=== PATIENT | female | born 1950 | race Caucasian/White ===

== ENCOUNTER 2020-03-23 10:53 | Outpatient (CLI) | payer MEDICARE, OTHER, SELFPAY ==
--- NOTE | 2020-03-23 | XR_ITS ---
WS: [id number] CHEST 2 VIEWS HISTORY: CHEST DISCOMFORT 1 MONTH COMPARISON: None available. Lungs: Well aerated lungs with a few granulomata. No pneumonia. Normal vasculature. No pleural effusi on. Cardiac size: Normal. Mediastinum/Aorta: Mild atherosclerosis aorta. Bones: Normal. XR/XR chest 2V* [id number] IMPRESSION: Prior granulomatous disease. No acute cardiopulmonary disease.
[2020-03-23 12:28] LABS: D Dimer 0.42 ug/mIFEU (0-0.59)
== END 2020-03-23 10:54 | disposition home or self-care (01) ==
LOC: RADOUTREAD 11:18
PROVIDERS: PCP Family Medicine; Visit Provider Family Medicine
DX: R07.89 Other chest pain (principal)
CPT/HCPCS: 85378

== ENCOUNTER 2021-03-19 03:16 | Emergency (ER) | payer MEDICARE, OTHER, SELFPAY ==
--- NOTE | 2021-03-19 03:18 | ECG_ITS ---
[facility] Test Date: 2021-03-19 Pat Name: Stacy Leong Department: Room: Gender: Female Gas Desulfurizer: : 1950 Requested By: Nadia Sage Order Number: [id number] Connor MD: Alexandru Mendoza M.D. Measurements Intervals [place] Rate: 160 P: VT: QRS: 71 QRSD: 73 T: 65 QT: 271 QTc: 443 Interpretive Statements ATRIAL FIBRILLATION WITH RAPID VENTRICULAR RESPONSE ST DEPRESSION, CONSIDER SUBENDOCARDIAL INJURY [0.1+ mV ST DEPRESSION] No previous ECG available for comparison Electronically Signed On 03-19-2021 17:11:47 GLOVE PARTS CUTTER by Alexandru Mendoza M.D. [email or web address] river [email or web address] Technologiesacmc [email or web address]/store/[id number] f
[2021-03-19 03:19] VITALS: BP 122/94; PULSE 164; RESP 18; TEMP 36.8; O2SAT 98; BMI 21.1
--- NOTE | 2021-03-19 03:26 | XRR_ITS ---
PROCEDURE INFORMATION: Exam: XR Chest Exam date and time: 03/19/2021 3:26 AM Age: 70 years old Clinical indication: Pain; Chest pressure; Additional info: Cp TECHNIQUE: Imaging protocol: XR of the chest. Views: 1 view. Total images: 1 COMPARISON: No relevant prior studies available. FINDINGS: Lungs: Unremarkable. No consolidation. Pleural spaces: Unremarkable. No pleural effusion. No pneumothorax. Heart/Mediastinum: Unremarkable. No cardiomegaly. Vasculature: Atherosclerosis is evident. Bones/joints: Unremarkable. XR/XR chest 1V portable [id number] IMPRESSION: No acute findings.
--- NOTE | 2021-03-19 03:26 | ECG_ITS ---
[facility] Test Date: 2021-03-19 Pat Name: Stacy Leong Department: Room: Gender: Female Assessment Director: : 1950 Requested By: Nadia Sage Order Number: [id number] Connor MD: Alexandru Mendoza M.D. Measurements Intervals [place] Rate: 160 P: ME: QRS: 71 QRSD: 73 T: 65 QT: 271 QTc: 443 Interpretive Statements ATRIAL FIBRILLATION WITH RAPID VENTRICULAR RESPONSE ST DEPRESSION, CONSIDER SUBENDOCARDIAL INJURY [0.1+ mV ST DEPRESSION] No previous ECG available for comparison Electronically Signed On 03-19-2021 17:11:58 INLAYER by Alexandru Mendoza M.D. [email or web address] [facility] [id number] f
--- NOTE | 2021-03-19 03:28 | W.ED.ARRPALP ---
HPI - Arrhythmia/Palpitations General: Chief Complaint: Arrhythmia/Palpitations Stated Complaint: Arithmia Time Seen by Provider: 03/19/21 03:18 Source: patient Mode of arrival: ambulatory Limitations: no limitations History of Present Illness: 60-year-old female who states that she had woke up little over an hour ago with palpitations. She states that she could feel her heart was racing and her heart rate was in the 160s's in the 160s here with A. fib with RVR. She has no history of documented A. fib she states that she has had some tachycardia in the past but typically it resolves after carotid massage states that tonight has not resolved. She states she wore a Holter monitor few months ago but never showed any arrhythmias. She has some slight chest pain with the palpitations. Denies any shortness of breath. No fever. Associated symptoms: Deny nausea or vomiting Review of Systems Const: Denies: fever(s), chills, body aches or change in appetite Eyes: Denies: blurry vision or eye discomfort ENMT: Denies: throat pain or dental pain Card: Reports: palpitations Resp: Denies: dyspnea GI: Denies: abdominal pain, nausea, vomiting or diarrhea : Denies: dysuria Musc: Denies: neck pain or back pain Skin/Breast: Denies: rash Neuro: Denies: headache(s) Psych: Denies: depression Emerson/Lymph: Denies: easy bruising All/Imm: Denies: urticaria PFSH ED PFSH: Medical History (Updated 03/19/21 @ 04:05 by Nadia Sage MD) No pertinent past medical history Social History (Updated 03/19/21 @ 03:31 by Nadia Sage MD) Substance/Drug Use: never Physical Exam Const: COMMON NORMALS: no acute distress and patient oriented x3 HENMT: COMMON NORMALS: normocephalic and atraumatic HEAD & SCALP: normocephalic and atraumatic Eye: COMMON NORMALS: Equal, round and reactive pupils present and EOMs intact bilaterally PUPIL: Yes Equal, round and reactive pupils present Neck/C-Spine: COMMON NORMALS: full ROM and supple Chest: COMMONS NORMALS: normal inspection of the chest and normal palpation of entire chest wall Resp: COMMON NORMALS: normal respiratory effort, No retractions, No use of accessory muscles and clear to auscultation bilaterally AUSCULTATION: clear to auscultation bilaterally Cardio: COMMON NORMALS: No murmurs present (Cardio) RATE: tachycardic RHYTHM: abnormal rhythm irregularly irregular GI: COMMON NORMALS: Normal to inspection, nondistended, normoactive bowel sounds present, Soft to palpation, non-tender and no masses PALPATION: Yes Soft to palpation Extremity: COMMON NORMALS: normal to inspection and full ROM Neuro: COMMON NORMALS: patient oriented x3, moves all extremities and no focal motor deficits Psych: COMMON NORMALS: mental status grossly normal, Normal thought process present and cooperative THOUGHT PROCESS: Normal thought process present Skin: COMMON NORMALS: no rashes or lesions noted and no wounds GENERAL SKIN EXAM: no rashes or lesions noted Course Vital Signs: Vital signs: Vital Signs Temperature 98.3 F 03/19/21 03:19 Pulse Rate 164 H 03/19/21 03:19 Respiratory Rate 18 03/19/21 03:19 Blood Pressure 122/94 03/19/21 03:19 Pulse Oximetry 98 03/19/21 03:19 MDM - Arrhythmia/Palpitations Medical Decision Making Patient presents here with Lashon mustafa with RVR. Her heart rates much improved after Cardizem and is in the 80s. Her blood pressure has been stable as well. I did speak to cardiology Dr. Fang will start patient on metoprolol along with Eliquis and get her follow-up with him outpatient she is to return if worsening she understands agrees to plan. Lab Data : 03/19/21 03:25 03/19/21 03:25 Laboratory Results WBC 4.2 10^3/uL (4.0-10.0) 03/19/21 03:25 RBC 4.90 10^6/uL (4.1-5.3) 03/19/21 03:25 Hgb 14.9 g/dL (11.5-15.3) 03/19/21 03:25 Hct 45.0 % (37.0-47.0) 03/19/21 03:25 MCV 91.8 fl (81-99) 03/19/21 03:25 MCH 30.4 pg (28.0-34.0) 03/19/21 03:25 MCHC 33.1 g/dL (30.0-36.0) 03/19/21 03:25 RDW 11.9 % (12.1-15.1) L 03/19/21 03:25 Plt Count 380 10^3/cmm (130-400) 03/19/21 03:25 MPV 9.8 fL (7.4-10.4) 03/19/21 03:25 Neut % (Auto) 41.8 % 03/19/21 03:25 Lymph % (Auto) 41.8 % 03/19/21 03:25 Dale % (Auto) 11.9 % 03/19/21 03:25 Eos % (Auto) 3.3 % 03/19/21 03:25 Baso % (Auto) 1.0 % 03/19/21 03:25 Neut # (Auto) 1.75 10^3/uL (1.8-7.7) L 03/19/21 03:25 Lymph # (Auto) 1.8 10^3/uL (0.8-4.8) 03/19/21 03:25 Dale # (Auto) 0.5 10^3/uL (0.2-0.9) 03/19/21 03:25 Eos # (Auto) 0.1 10^3/uL (0.0-0.8) 03/19/21 03:25 Baso # (Auto) 0.0 10^3/uL (0.0-0.1) 03/19/21 03:25 Nucleated RBC % (auto) 0 % 03/19/21 03:25 Nucleated RBCs # 0.0 /100WBC 03/19/21 03:25 Sodium 140 mmol/L (136-145) 03/19/21 03:25 Potassium 4.0 mmol/L (3.5-5.1) 03/19/21 03:25 Chloride 107 mmol/L (98-107) 03/19/21 03:25 Carbon Dioxide 21 mmol/L (22-29) L 03/19/21 03:25 Anion Gap 16.0 (5-19) 03/19/21 03:25 BUN 11 mg/dL (8-23) 03/19/21 03:25 Creatinine 0.7 mg/dL (0.5-0.9) 03/19/21 03:25 GFR Calculation 83.2 mL/min (90-130) L 03/19/21 03:25 Glucose 155 mg/dL (65-115) H 03/19/21 03:25 Calculated Osmolality 293 mOsm/kg (285-295) 03/19/21 03:25 Calcium 9.6 mg/dL (8.5-10.5) 03/19/21 03:25 Total Bilirubin 0.4 mg/dL (0.15-1.2) 03/19/21 03:25 AST 17 U/L (0-32) 03/19/21 03:25 ALT 17 U/L (0-33) 03/19/21 03:25 Alkaline Phosphatase 84 IU/L (35-105) 03/19/21 03:25 Troponin T Baseline 8 ng/L (0-10) 03/19/21 03:25 Total Protein 6.7 g/dL (6.6-8.7) 03/19/21 03:25 Albumin 4.4 g/dL (3.5-5.2) 03/19/21 03:25 Globulin 2.3 g/dL (1.3-4.6) 03/19/21 03:25 EKG Data EKG 1: I personally reviewed and interpreted this EKG as follows: EKG interpretation date: 03/19/21 EKG interpretation time: 03:21 Interpretation: afib with rvr hr [address] or t wave abnormalities qrs 73 qtc 360 Discharge Plan Discharge Patient Disposition: Home Clinical Impression: Atrial fibrillation with RVR Prescriptions: New Lopressor 50 mg tablet 25 mg PO BID Qty: 60 0RF Eliquis 5 mg tablet 5 mg PO BID Qty: 60 0RF Discharge Orders: Discharge ED (Routine); Ordered 03/19/21 Ordered By: Nadia Sage Referrals: Alexandru Mendoza M.D [Physician] - 1-3 days Discharge Diet: Advance as tolerated Discharge Activity: Resume usual activity Patient Instructions: A-fib (Atrial Fibrillation) (ED) Coding Level of Care Code ED Junior Systems Engineer for Chg Fwd Exam Comprehensive
[2021-03-19] MEDS: sodium chloride 0.9% 1,000 ML 999 ML IV (03:37)
[2021-03-19 03:43] LABS: Eosinophils # 0.1 10^3/uL (0.0-0.8); Eosinophils % 3.3 %; Hemoglobin 14.9 g/dL (11.5-15.3); Lymphocytes # 1.8 10^3/uL (0.8-4.8); Lymphocytes % 41.8 %; Mean Corpuscular HGB Conc 33.1 g/dL (30.0-36.0); Mean Corpuscular Hemoglobin 30.4 pg (28.0-34.0); Mean Corpuscular Volume 91.8 fl (81-99); Mean Platelet Volume 9.8 fL (7.4-10.4); Monocytes # 0.5 10^3/uL (0.2-0.9); Monocytes % 11.9 %; Neutrophils # 1.75 10^3/uL (1.8-7.7); Neutrophils % 41.8 %; Nucleated Red Blood Cells % 0 %; Platelet Count 380 10^3/cmm (130-400); Red Cell Distribution Width 11.9 % (12.1-15.1); White Blood Count 4.2 10^3/uL (4.0-10.0)
[2021-03-19] MEDS: dilTIAZem 60 mg Tablet PO (03:55)
[2021-03-19 03:56] LABS: Troponin(5th) Baseline 8 ng/L (0-10)
[2021-03-19 03:58] LABS: Alanine Aminotransferase 17 U/L (0-33); Albumin Level 4.4 g/dL (3.5-5.2); Alkaline Phosphatase 84 IU/L (35-105); Aspartate Amino Transferase 17 U/L (0-32); Blood Urea Nitrogen 11 mg/dL (8-23); Calcium 9.6 mg/dL (8.5-10.5); Carbon Dioxide 21 mmol/L (22-29); Chloride 107 mmol/L (98-107); Globulin 2.3 g/dL (1.3-4.6); Glomerular Filtration Rate 83.2 mL/min (90-130); Glucose 155 mg/dL (65-115); Osmolality Calculated 293 mOsm/kg (285-295); Sodium 140 mmol/L (136-145); Total Bilirubin 0.4 mg/dL (0.15-1.2); Total Protein 6.7 g/dL (6.6-8.7)
--- NOTE | 2021-03-19 12:40 | DCPLANNER ---
Addendum entered by Negin Greer 04/01/21 15:46: Patient had a follow up appointment scheduled for 03.27.[address] Hearn at [facility] - patient did attend appointment. Original Note: eligibility manager had message to schedule a follow up appointment for patient with [facility]. eligibility manager called [facility], spoke with Ursula, a follow up appointment was scheduled for Thursday, March 27, 2021 at 12:[address] Hearn. eligibility manager called and spoke with patients , gave him the appointment information.
== END 2021-03-19 04:47 | disposition home or self-care (01) ==
PROVIDERS: Emergency Provider Emergency Medicine
DX: I48.20 Chronic atrial fibrillation, unspecified (principal)
CPT/HCPCS: 71045; 80053; 84484; 85025; 93005; 96361; 96374; 96375; 99284; J3490; J7030

== ENCOUNTER 2021-04-10 08:10 | Outpatient (CLI) | payer MEDICARE, OTHER, SELFPAY ==
[2021-04-10 08:41] VITALS: BMI 23.1
--- NOTE | 2021-04-10 08:52 | ECG_ITS ---
[facility] Test Date: 2021-04-10 Pat Name: Stacy Leong Department: Room: Gender: Female Auto Body Repairer Fiberglass: Andra España : 1950 Requested By: Pb Olivera Order Number: [id number] Connor MD: Alexandru Mendoza M.D. Interpretive Statements NAME OF STUDY: TREADMILL STRESS TEST INDICATION: [afib, ] EXERCISE DATA: The patient was exercised by Dale protocol. Baseline heart rate was 77 beats per minute. Baseline blood pressure was 119/68 millimeters of mercury. Target heart rate was 129 beats per minute. Maximum heart rate achieved was 153, which was 118% of the target heart rate. Maximum blood pressure was 229/48 millimeters of mercury. Total exercise time was 9 minutes. Maximum METs achieved was 10.2, maximum VO2 was 35.7. The reason for ending the test was completion of the protocol. The patient complained of shortness of breath during the stress test, which then resolved at the end of the test. ELECTROCARDIOGRAM: BASELINE: Showed sinus rhythm, normal axis, no significant ST-T changes at the baseline noted. [] EXERCISE: At the peak exercise level, [] No significant ST-T changes suggestive of ischemia noted. [] RECOVERY: During the recovery period, heart rate dropped appropriately. No significant ST-T changes in the recovery suggestive of ischemia noted. [] CONCLUSION: 1. Exercise capacity is excellent. 2. Heart rate response was appropriate. 3. Blood pressure response was hypertensive 4. Symptoms not suggestive of ischemia. 5. Stress test is negative for ischemia Electronically Signed On 05-18-2021 11:52:19 CDT by Alexandru Mendoza M.D. [id number]
[2021-04-10 09:14] VITALS: BP 160/56; PULSE 90
== END 2021-04-10 08:11 | disposition home or self-care (01) ==
LOC: CDL 08:11
PROVIDERS: PCP Physician Assistant; Visit Provider Family Medicine
DX: I48.91 Unspecified atrial fibrillation (principal); R06.02 Shortness of breath
CPT/HCPCS: 93017

== ENCOUNTER 2021-05-01 11:35 | Outpatient (CLI) | payer MEDICARE, OTHER, SELFPAY ==
--- NOTE | 2021-05-01 11:45 | USCV_ITS ---
Stacy Leong Age: 70 Gender: F : 1950 Exam Date: 05/01/2021 12:24 Ordering Phys: Alexandru Mendoza M.D ([email or web address]) Technologist: ESA Exam Location: [facility] [place] Indication: Shortness of breath BP: 124 / 76 HR: 60 Rhythm: Sinus Technical Quality: Technically difficult study MEASUREMENTS (Male / Female) Normal Values 2D ECHO LV Diastolic Diameter PLAX 3.0 cm 4.2 - 5.9 / 3.9 - 5.3 cm LV Systolic Diameter PLAX 1.9 cm IVS Diastolic Thickness 1.2 cm 0.6 - 1.0 / 0.6 - 0.9 cm IVS Systolic Thickness 1.5 cm LVPW Diastolic Thickness 1.0 cm 0.6 - 1.0 / 0.6 - 0.9 cm LVPW Systolic Thickness 1.3 cm RV Chamber Size 2.7 cm LVOT Diameter 2.1 cm LV Ejection Fraction 2D Teich 69.2 % LV Ejection Fraction MOD 2C 69.8 % LV Ejection Fraction 2C AL 71.0 % LA Diameter 2.7 cm LA Width 2.8 cm LA Height 4.6 cm RA Width 2.9 cm RA Height 4.7 cm Aorta at Sinotubular Diameter 2.7 cm M-MODE Aortic Annulus Diameter 2.9 cm LA Ao Ratio MM 1.1 MV E Point Septal Separation 0.4 cm DOPPLER AV Peak Velocity 127.0 cm/s LVOT Peak Velocity 97.0 cm/s AV Area Cont Eq vti 2.6 cm squared AV Area Cont Eq pk 2.6 cm squared MV Area PHT 4.4 cm squared Mitral E to A Ratio 1.3 MV E' Velocity 48.5 cm/s Mitral E to MV E' Ratio 6.8 Mitral E to LV E' Lateral Ratio 6.4 Mitral E to LV E' Septal Ratio 7.2 TR Peak Velocity 287.0 cm/s TR Peak Gradient 32.9 mmHg TV Peak E Velocity 37.0 cm/s Right Atrial Pressure 3.0 mmHg Pulmonary Artery Systolic Pressu 35.9 mmHg PV Peak Velocity 89.0 cm/s FINDINGS Left Ventricle Normal left ventricular size. LV systolic function is normal with EF of 55-60%. No regional wall motion abnormalities. Normal diastolic function Right Ventricle The right ventricle is normal in size and function. Right Atrium The right atrium is normal in size. Left Atrium The left atrium is normal in size. Mitral Valve Structurally normal mitral valve without significant stenosis or prolapse. There is trace mitral regurgitation. Aortic Valve Structurally normal aortic valve without significant sclerosis or stenosis. There is no aortic regurgitation. Tricuspid Valve Structurally normal tricuspid valve without significant stenosis or regurgitation. Insufficient TR jet to calculate RVSP Pulmonic Valve Structurally normal pulmonic valve without significant stenosis. There is no pulmonic regurgitation. Pericardium Normal pericardium without effusion. Aorta Normal ascending aorta dimension. CONCLUSIONS LV systolic function is normal with EF of 55-60% Normal diastolic function Trace mitral regurgitation No comparison studies are available Alexandru Mendoza MD (Electronically Signed) Final Date: 10 May 2021 12:58 S
== END 2021-05-01 11:36 | disposition home or self-care (01) ==
LOC: RAD 11:37
PROVIDERS: PCP Physician Assistant; Visit Provider Internal Medicine
DX: R06.02 Shortness of breath (principal); R07.9 Chest pain, unspecified; I34.0 Nonrheumatic mitral (valve) insufficiency
CPT/HCPCS: 93306

== ENCOUNTER → 2021-07-02 13:02 | Outpatient (BNVA) | payer MEDICARE, OTHER, SELFPAY | PROVIDERS: PCP Physician Assistant; Visit Provider Internal Medicine | DX: I48.91 Unspecified atrial fibrillation (principal); Z79.01 Long term (current) use of anticoagulants | CPT/HCPCS: 99213 ==

== ENCOUNTER → 2022-04-01 12:47 | Outpatient (BNVA) | payer MEDICARE, OTHER, SELFPAY | PROVIDERS: PCP Physician Assistant; Visit Provider Internal Medicine | DX: I48.91 Unspecified atrial fibrillation (principal); Z79.01 Long term (current) use of anticoagulants | CPT/HCPCS: 99214 ==

== ENCOUNTER 2022-12-11 20:00 | Emergency (ER) | payer MEDICARE, OTHER, SELFPAY ==
[2022-12-11 20:20] VITALS: BP 138/63; PULSE 55; RESP 14; TEMP 36.4; O2SAT 100; BMI 22.2
[2022-12-11 20:32] LABS: Basophils % 0.9 %; Eosinophils # 0.1 10^3/uL (0.0-0.8); Eosinophils % 3.2 %; Hematocrit 38.7 % (36-47); Lymphocytes # 1.3 10^3/uL (0.8-4.8); Lymphocytes % 37.4 %; Mean Corpuscular HGB Conc 33.1 g/dL (30-55); Mean Corpuscular Hemoglobin 30.8 pg (27-33); Mean Corpuscular Volume 93.3 fl (85-98); Mean Platelet Volume 9.8 fL (7.4-10.4); Monocytes # 0.5 10^3/uL (0.2-0.9); Monocytes % 13.5 %; Neutrophils # 1.54 10^3/uL (1.8-7.7); Nucleated Red Blood Cells % 0 %; Platelet Count 305 10^3/cmm (157-399); Red Blood Count 4.15 10^6/uL (3.85-5.65); White Blood Count 3.42 10^3/uL (3.29-11.43)
[2022-12-11 20:35] LABS: INR 1.07 (0.8-1.2)
--- NOTE | 2022-12-11 20:37 | USR_ITS ---
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 72 y/o F TECHNIQUE: Imaging protocol: Real-time transabdominal and transvaginal pelvic ultrasound (limited) with image documentation. Transvaginal imaging was used for better evaluation of the endometrium, adnexa, and/or cervix. COMPARISON: CT abdomen pelvis w con* [id number] 09/06/2018 10:13 AM FINDINGS: Uterus: Uterus measures 4.9 cm x 4.3 cm x 2.4 cm. Uterus is normal in size measuring 4.9 x 4.3 x 2.4 cm. Endometrial stripe is normal at 5.6 mm. Intramural 1.5 cm fibroid. Right ovary/adnexa: Right ovary not visualized. Left ovary/adnexa: Left ovary not visualized. US/US pelvis lmt w transvag IMPRESSION: 1. Uterus is normal in size measuring 4.9 x 4.3 x 2.4 cm. 2. Endometrial stripe is normal at 5.6 mm. 3. Intramural 1.5 cm fibroid. 4. Right ovary not visualized. 5. Left ovary not visualized.
[2022-12-11 20:44] LABS: Alanine Aminotransferase 15 U/L (0-33); Albumin Level 4.3 g/dL (3.5-5.2); Alkaline Phosphatase 70 U/L (35-105); Anion Gap 13.1 (5-19); Aspartate Amino Transferase 14 U/L (0-32); Blood Urea Nitrogen 10 mg/dL (8-23); Carbon Dioxide 28 mmol/L (22-29); Chloride 103 mmol/L (98-107); Globulin 2.3 g/dL (1.3-4.6); Glomerular Filtration Rate 70.9 mL/min (90-130); Glucose 110 mg/dL (65-115); Osmolality Calculated 290 mOsm/kg (285-295); Potassium 4.1 mmol/L (3.5-5.1); Sodium 140 mmol/L (136-145); Total Bilirubin 0.4 mg/dL (0.15-1.2); Total Protein 6.6 g/dL (6.6-8.7)
[2022-12-11 21:53] LABS: Add Urine Microscopic? NO; Charge for UA Resulting for Rev
[2022-12-11 22:07] LABS: Glucose Urine UA Norm (Normal); Protein Urine Neg (Negative); Urine Appearance Clear (CLEAR); Urine Color Colorless (Yellow); pH Urine 6 (5-7)
[2022-12-11 22:08] LABS: Bilirubin Urine Neg (Negative); Blood Urine Neg (Negative); Ketones Urine Negative (Negative); Leukocyte Esterase Urine Negative (Negative); Nitrate Urine Negative (Negative); Urobilinogen Urine Neg (Negative)
[2022-12-11 22:26] VITALS: BP 136/75; PULSE 61; RESP 16; O2SAT 99
--- NOTE | 2022-12-11 22:56 | ED_ITS ---
HPI - Female Genitourinary General: Chief complaint: Urogenital-Female Stated complaint: vaginal bleeding Time Seen by Provider: 12/11/22 21:28 Source: patient Mode of arrival: ambulatory Limitations: no limitations History of Present Illness: Patient presents emergency department today for evaluation treatment of sudden and spontaneous vaginal bleeding. Patient states she was finishing up in the [facility] when she started having dripping of blood vaginally. 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 She has not had menstrual cycle since that time. Patient admits to low abdominal cramping now but has not had nausea, vomiting, dizziness, or lightheadedness. Patient does have yearly well woman checks with an [facility] in [place]. Patient sees Dr. Jennifer Iqbal at [facility]. Patient takes a 5 mg Eliquis tablet twice a day for A-fib. Review of Systems General: Reports: 10 or more systems reviewed and unremarkable except in HPI and below PFSH ED PFSH: Medical History No pertinent past medical history Family History Mother Atrial fibrillation Father History of open heart surgery Social History Smoking and tobacco/nicotine status: never used tobacco/nicotine Alcohol intake: never Substance/Drug Use: never Physical Exam Const: COMMON NORMALS: no acute distress (Vital signs stable), average body habitus, patient oriented x3 and alert HENMT: COMMON NORMALS: normocephalic, atraumatic, hearing grossly normal bilaterally and moist oral mucous membranes HEAD & SCALP: normocephalic and atraumatic Eye: COMMON NORMALS: Equal, round and reactive pupils present, EOMs intact bilaterally and conjunctivae normal CONJUNCTIVA: Yes conjunctivae normal P UPIL: Yes Equal, round and reactive pupils present Neck/C-Spine: COMMON NORMALS: no JVD Lymph: LYMPHATIC: no lymphadenopathy noted Resp: COMMON NORMALS: normal respiratory effort, No retractions and No use of accessory muscles Cardio: COMMON NORMALS: no JVD and regular rate RATE: regular rate : COMMON NORMALS: Yes no CVA tenderness BLADDER/KIDNEY EXAM: Yes no CVA tenderness Back/Pelvis: COMMON NORMALS: no CVA tenderness and thoraco-lumbar ROM normal Extremity: COMMON NORMALS: normal to inspection, full ROM and capillary refill normal NARRATIVE EXTREMITY EXAM: Patient is independently ambulatory and weightbearing here in the emergency department. Neuro: COMMON NORMALS: patient oriented x3 SENSORIUM/ORIENTATION: Yes alert Psych: COMMON NORMALS: mental status grossly normal, cooperative, normal affect, speech normal and activity/motor behavior normal SPEECH: Yes normal speech Course Vital Signs: Vital signs: Vital Signs Temperature 97.6 F 12/11/22 20:20 Pulse Rate 61 12/11/22 22:26 Respiratory Rate 16 12/11/22 22:26 Blood Pressure 136/75 12/11/22 22:26 Pulse Oximetry 99 12/11/22 22:26 Oxygen Delivery Me thod Room Air 12/11/22 22:26 MDM - Female Medical Decision Making Patient presented to the emergency department today for spontaneous onset of vaginal bleeding. Patient has not had vaginal bleeding now for many many years due to surgical menopause from bilateral oophorectomy. Patient does still have a uterus and gets yearly well woman exams from Jennifer Iqbal at [facility] in [place]. Patient does take a blood thinner because of her A-fib and at this time, heart rate, blood pressure, and lab work is all stable without concerns of acute anemia from blood loss. Ultrasound confirms findings of an intramural fibroid. I would suspect that with new onset of vaginal bleeding, this would be the cause. I did discuss fibroids with the patient. Make sure to let her know that fibroids are not cancer but, she is on a blood thinner and, these can continue to cause vaginal bleeding, would recommend she have a discussion with her [facility] [employer] for more definitive management-even possibly having her uterus removed. Patient was given a medical record release form to allow her evaluation from this evening to be sent to her [facility] [employer]. Patient was also given a disc of her ultrasound images as I was told medical records does not send actual images on medical record request. While working on the patient's note, I noticed an addendum pop up under radiology impressions... Addendum indicates that the endometrial stripe is now considered to be borderline thickened and recommended tissue correlation. I added this note for the addendum to the patient's discharge paperwork as the patient's [facility] [employer] might consider an endometrial biopsy but would not change my recommendation to be followed up with as soon as possible to discuss new onset vaginal bleeding. Patient was given strict return precautions for significant increase in vaginal bleeding including saturation of feminine pads every 1-2 hours, passing of large clots, significant increase in abdominal pains, vomiting, fever, dizziness, or passing out. Patient verbalized understanding and agreement to treatment plan. Differential Diagnosis Unlikely abdominal pain, calculus of kidney, endometriosis, gastroenteritis or small bowel obstruction Lab Data 12/11/22 20:13 12/11/22 20:13 Radiology Impressions Pelvic/Transvag US 12/11/22 20:37 IMPRESSION: 1. Uterus is normal in size measuring 4.9 x 4.3 x 2.4 cm. 2. Endometrial stripe is normal at 5.6 mm. 3. Intramural 1.5 cm fibroid. 4. Right ovary not visualized. 5. Left ovary not visualized. ADDENDUM: 12/11/222220 Endometrial stripe is borderline thickened for a postmenopausal woman, consider tissue correlation given history of vaginal bleeding. Laboratory Results WBC 3.42 10^3/uL (3.29-11.43) 12/11/22 20:13 RBC 4.15 10^6/uL (3.85-5.65) 12/11/22 20:13 Hgb 12.80 g/dL (11.27-16.99) 12/11/22 20:13 Hct 38.7 % (36-47) 12/11/22 20:13 MCV 93.3 fl (85-98) 12/11/22 20:13 MCH 30.8 pg (27-33) 12/11/22 20:13 MCHC 33.1 g/dL (30-55) 12/11/22 20:13 RDW 12.0 % (12.1-15.1) L 12/11/22 20:13 Plt Count 305 10^3/cmm (157-399) 12/11/22 20:13 MPV 9.8 fL (7.4-10.4) 12/11/22 20:13 Neut % (Auto) 45.0 % 12/11/22 20:13 Lymph % (Auto) 37.4 % 12/11/22 20:13 [place] % (Auto) 13.5 % 12/11/22 20:13 Eos % (Auto) 3.2 % 12/11/22 20:13 Baso % (Auto) 0.9 % 12/11/22 20:13 Neut # (Auto) 1.54 10^3/uL (1.8-7.7) L 12/11/22 20:13 Lymph # (Auto) 1.3 10^3/uL (0.8-4.8) 12/11/22 20:13 [place] # (Auto) 0.5 10^3/uL (0.2-0.9) 12/11/22 20:13 Eos # (Auto) 0.1 10^3/uL (0.0-0.8) 12/11/22 20:13 Baso # (Auto) 0.0 10^3/uL (0.0-0.1) 12/11/22 20:13 Nucleated RBC % (auto) 0 % 12/11/22 20:13 Nucleated RBCs # 0.0 /100WBC 12/11/22 20:13 PT 14.20 SECONDS (12.1-14.9) 12/11/22 20:13 INR 1.07 (0.8-1.2) 12/11/22 20:13 Sodium 140 mmol/L (136-145) 12/11/22 20:13 Potassium 4.1 mmol/L (3.5-5.1) 12/11/22 20:13 Chloride 103 mmol/L (98-107) 12/11/22 20:13 Carbon Dioxide 28 mmol/L (22-29) 12/11/22 20:13 Anion Gap 13.1 (5-19) 12/11/22 20:13 BUN 10 mg/dL (8-23) 12/11/22 20:13 Creatinine 0.8 mg/dL (0.5-0.9) 12/11/22 20:13 GFR Calculation 70.9 mL/min (90-130) L 12/11/22 20:13 Glucose 110 mg/dL (65-115) 12/11/22 20:13 Calculated Osmolality 290 mOsm/kg (285-295) 12/11/22 20:13 Calcium 9.0 mg/dL (8.5-10.5) 12/11/22 20:13 Total Bilirubin 0.4 mg/dL (0.15-1.2) 12/11/22 20:13 AST 14 U/L (0-32) 12/11/22 20:13 ALT 15 U/L (0-33) 12/11/22 20:13 Alkaline Phosphatase 70 U/L (35-105) 12/11/22 20:13 Total Protein 6.6 g/dL (6.6-8.7) 12/11/22 20:13 Albumin 4.3 g/dL (3.5-5.2) 12/11/22 20:13 Globulin 2.3 g/dL (1.3-4.6) 12/11/22 20:13 Urine Color Colorless (Yellow) 12/11/22 21:44 Urine Appearance Clear (CLEAR) 12/11/22 21:44 Urine pH 6 (5-7) 12/11/22 21:44 Ur Specific [place] 1.010 (1.005-1.030) 12/11/22 21:44 Urine Protein Neg (Negative) 12/11/22 21:44 Urine Glucose (UA) Norm (Normal) 12/11/22 21:44 Urine Ketones Negative (Negative) 12/11/22 21:44 Urine Blood Neg (Negative) 12/11/22 21:44 Urine Nitrate Negative (Negative) 12/11/22 21:44 Urine Bilirubin Neg (Negative) 12/11/22 21:44 Urine Urobilinogen Neg mg/dL (Negative) 12/11/22 21:44 Ur Leukocyte Esterase Negative (Negative) 12/11/22 21:44 All radiology interpretation(s) finalized by discharge (Late addendum to ultrasound added by radiologist) Discharge Plan Discharge Patient Disposition: Home Clinical Impression: Fibroid, uterine, Vaginal bleeding, abnormal Condition: Stable Prescriptions: No Action Lopressor 50 mg tablet 25 mg PO BID PRN Eliquis 5 mg tablet 5 mg PO BID Qty: 180 2RF Discharge Orders: Discharge ED (Routine); Ordered 12/11/22 Ordered By: Monika Broussard Referrals: Kirti Velasco PA [Primary Care Provider] - Discharge Diet: Usual diet Discharge Activity: Increase activity as tolerated Patient Instructions: Fibroids, Uterine Fibroids (ED) Activity Restrictions/Additional Instructions: Lab work today shows no acute concerns though you would benefit from increasing your clear fluid intake for the next couple of days. Ultrasound confirms an intramural uterine fibroid. As we discussed these are noncancerous growths that-years in particular, is growing inside the wall of the uterus. These are associated with vaginal bleeding. Since you are on a blood thinner and you take it for A-fib, and, since you have no signs of acute anemia from blood loss, at this time I do think it is a good idea to continue your blood thinner as clot development from A-fib at this time is still more serious than the bleeding which started tonight. First thing tomorrow, call Dr. Iqbal's office to make them aware of your symptoms and findings from tonight's evaluation. They should accommodate you an appointment relatively quickly. We are also providing you imaging as well as the lab results and note from your evaluation tonight for them to look over. I would expect a conversation regarding more definitive treatment and management of your fibroid-especially since it is causing bleeding. However, if before you are able to follow-up with your [facility] [employer] you develop significant increase in bleeding-saturating feminine pads every hour or 2, developing severe worsening of abdominal pains, develop vomiting, develop fever, develop dizziness or fainting you need to return back to the emergency department for reevaluation. The reading radiologist just added an addendum to your ultrasound. He thinks that the endometrial layer-or the shedding layer on the inner portion of the uterus may be slightly thickened. I mention this addendum as the [facility] [employer] might also take endometrial tissue samples. However, I do not think this changes the recommendation for follow-up with your [facility] [employer] as soon as possible to discuss this new onset vaginal bleeding. Coding Level of Care Code ED [facility] [employer] for Dana Floyd
[2022-12-11 23:18] VITALS: PULSE 60; RESP 16; O2SAT 98
== END 2022-12-11 23:23 | disposition home or self-care (01) ==
PROVIDERS: Emergency Medicine; Emergency Provider Physician Assistant; PCP Physician Assistant
DX: D25.9 Leiomyoma of uterus, unspecified (principal); N93.9 Abnormal uterine and vaginal bleeding, unspecified; Z79.01 Long term (current) use of anticoagulants
CPT/HCPCS: 36415; 76830; 76857; 80053; 81003; 85025; 85610; 99284

== ENCOUNTER → 2023-02-26 13:12 | Outpatient (BNVA) | payer MEDICARE, OTHER, SELFPAY | PROVIDERS: PCP Physician Assistant; Visit Provider Internal Medicine | DX: I48.91 Unspecified atrial fibrillation (principal); Z79.01 Long term (current) use of anticoagulants | CPT/HCPCS: 99214 ==

== ENCOUNTER → 2023-11-26 13:48 | Outpatient (BNVA) | payer MEDICARE, OTHER, SELFPAY | PROVIDERS: PCP Physician Assistant; Visit Provider Internal Medicine | DX: I48.91 Unspecified atrial fibrillation (principal); Z79.01 Long term (current) use of anticoagulants | CPT/HCPCS: 99214 ==

== ENCOUNTER 2024-06-23 14:11 | Outpatient (CLI) | payer MEDICARE, OTHER, SELFPAY ==
--- NOTE | 2024-06-23 15:06 | XR_ITS ---
WS: [id number] SCREENING DEXA SCAN Metaconomy CLINICAL INFORMATION: POST MENOPAUSAL COMPARISON: None. FINDINGS: The L1-L4 bone mineral density measures 0.909 g/cm2. This corresponds to a T score score of -2.3 and Z score of -0.3. Left femoral neck bone mineral density measures 0.767 g/cm2. This corresponds to a T score of -1.9 and Z score of -0.2. Right femoral neck bone mineral density measures 0.744 g/cm2. This corresponds to a T score -2.1of and Z score of -0.4. Mean femoral neck bone mineral density measures 0.756 g/cm2. This corresponds to a T score of -2.0 and Z score of -0.3. XR/XR DEXA axial skeleton* 21592 IMPRESSION: Osteopenia lumbar spine. Osteopenia femoral necks. Patient's FRAX calculated 10 year probability for major osteoporotic fracture i s 9.4% and osteoporotic hip fracture is 1.8%.
== END 2024-06-23 14:12 | disposition home or self-care (01) ==
PROVIDERS: PCP Family Medicine; Visit Provider Family Medicine
DX: Z78.0 Asymptomatic menopausal state (principal); M85.89 Other specified disorders of bone density and structure, multiple sites
CPT/HCPCS: 77080

== ENCOUNTER → 2024-08-25 15:00 | Outpatient (BNVA) | payer MEDICARE, OTHER, SELFPAY | PROVIDERS: PCP Family Medicine; Visit Provider Internal Medicine | DX: I48.91 Unspecified atrial fibrillation (principal); Z79.01 Long term (current) use of anticoagulants | CPT/HCPCS: 99213 ==